=== PATIENT | female | born 2000 | race Caucasian/White ===

== ENCOUNTER 2019-12-22 16:43 | Emergency (ER) | payer OTHER ==
[2019-12-22 16:51] VITALS: RESP 18
--- NOTE | 2019-12-22 17:42 | ED ---
General Adult HPI - General Chief complaint: Extremity Injury, Lower Stated complaint: L Foot Injury Time Seen by Provider: 12/22/19 17:16 Source: patient, RN notes reviewed Mode of arrival: wheelchair Limitations: physical limitation - History of Present Illness Initial comments: 19-year-old female presents to the emergency department for a chief complaint of left foot and ankle injury. Patient states that a few days ago she was trying to climb through a handle on a door and stepped on a shoe on the floor with her left foot. Patient states she rolled her ankle. States it is painful to walk on. Patient did have negative x-rays at [facility] 2 days ago but states her foot is more swollen and feels more painful.Patient has no other complaints at this time including shortness of breath, chest pain, abdominal pain, nausea or vomiting, headache, or visual changes. - Related Data Allergies Allergy/AdvReac Type Severity Reaction Status Date / Time No Known Allergies Allergy Verified 12/22/19 16:51 Review of Systems ROS Statement: Those systems with pertinent positive or pertinent negative responses have been documented in the HPI. ROS Other: All systems not noted in ROS Statement are negative. Past Medical History Past Medical History: No Reported History History of Any Multi-Drug Resistant Organisms: None Reported Past Surgical History: Section Past Psychological History: No Psychological Hx Reported Smoking Status: Current every day smoker Past Alcohol Use History: None Reported Past Drug Use History: None Reported General Exam Limitations: physical limitation General appearance: alert, in no apparent distress Head exam: Present: atraumatic, normocephalic, normal inspection Eye exam: Present: normal appearance, PERRL, EOMI. Absent: scleral icterus, conjunctival injection, periorbital swelling ENT exam: Present: normal exam, mucous membranes moist Neck exam: Present: normal inspection, full ROM. Absent: tenderness, meningismus, lymphadenopathy Respiratory exam: Present: normal lung sounds bilaterally. Absent: respiratory distress, wheezes, rales, rhonchi, stridor Cardiovascular Exam: Present: regular rate, normal rhythm, normal heart sounds. Absent: systolic murmur, diastolic murmur, rubs, gallop, clicks GI/Abdominal exam: Present: soft, normal bowel sounds. Absent: distended, tenderness, guarding, rebound, rigid Extremities exam: Present: full ROM (full range of motion of the left foot.), tenderness (Generalized tenderness over the left foot including the navicular and fifth metatarsal. Left lateral malleolus is also tender.), normal capillary refill (DP pulses 2+. Capillary refill less than 2 seconds.), joint swelling (Patient has mild ecchymosis over the dorsum of the distal foot as well as the lateral aspect of the left foot. She has mild edema of the left foot and the left lateral malleolus. No ecchymosis on the plantar aspect of the left foot.), other (Sensation intact left lower extremity). Absent: pedal edema, calf tenderness Course Vital Signs 12/22/19 12/22/19 16:48 18:36 Temperature 98.5 F 98.9 F Pulse Rate 94 100 Respiratory 18 18 Rate Blood Pressure 129/82 138/88 O2 Sat by Pulse 100 98 Oximetry Procedures - Orthopedic Splinting/Casting Injury #1 Side: left Lower Extremity Injury Location: short leg Lower Extremity Immobilizer: posterior splint Other Orthopedic Equipment: crutches Additional Comments: NV intatct after splint applied Medical Decision Making - Medical Decision Making Neurovascular status intact in the left lower extremity. Patient does have moderate edema of the left foot. X-ray of the left foot and ankle show soft tissue swelling of the midfoot and forefoot without acute fracture or dislocation. Follow-up MRI is recommended to evaluate Lisfranc ligament for possible tear given the overlying soft tissue swelling in the mild widening of the joint space.Orthopedic surgeon Dr. Matos recommends CT of the foot, posterior splint, and nonweightbearing on crutches. CT of the left foot was obtained which showed extensive soft tissue swelling of the dorsal midfoot and forefoot. No acute fracture. However ligaments and tendons are suboptimally evaluated, to exclude Lisfranc injury MRI foot is recommended. Patient was splinted in a posterior splint and given prescription for crutches. She will remain nonweightbearing. She will follow up with orthopedics on Wednesday. She will return here for any worsening symptoms. Disposition Clinical Impression: Foot injury Narrative: Concern for Lis-franc Disposition: HOME SELF-CARE Condition: Good Instructions (If sedation given, give patient instructions): Foot Fracture in Adults (ED) Additional Instructions: Please take Tylenol or Motrin for pain. Please keep the splint dry. Remain nonweightbearing on the left foot and use crutches. Follow-up with orthopedics on Wednesday. Dr. Matos stated he would like to see you Wednesday. Return here for any worsening symptoms. Is patient prescribed a controlled substance at d/c from ED?: No Referrals: Tomasz Matos MD [STAFF PHYSICIAN] - 1-2 days Time of Disposition: 20:08
--- NOTE | 2019-12-22 18:20 | XR ---
EXAMINATION TYPE: XR ankle complete LT, XR foot complete LT DATE OF EXAM: 12/22/2019 CLINICAL HISTORY: Left foot and ankle pain after fall TECHNIQUE: Frontal, lateral and oblique images of the left ankle and foot are obtained. COMPARISON: None. FINDINGS: There is no acute fracture/dislocation evident in the left ankle. The ankle mortise appea rs within normal limits. The overlying soft tissue appears unremarkable.There is no acute fracture o r dislocation evident in the left foot. The joint spaces in the left foot are preserved. Dorsal soft tissue swelling is seen of the forefoot and midfoot. There is mild widening of the joint space betwe en the first metatarsal and second cuneiform with hallux valgus deformity. IMPRESSION: Soft tissue swelling of the dorsal midfoot and forefoot. There is no acute fracture or d islocation in the left ankle or foot. Follow-up MRI is recommended to evaluate the Lisfranc ligament for possible tear given the overlying soft tissue swelling and mild widening of the joint space.
--- NOTE | 2019-12-22 19:42 | CT ---
EXAMINATION TYPE: CT foot LT wo con DATE OF EXAM: 12/22/2019 COMPARISON: Left foot x-rays of the same date HISTORY: Pain after fall. Patient unable to flex foot. CT DLP: 156.1 mGycm Automated exposure control for dose reduction was used. TECHNIQUE: Unenhanced CT of the left foot was obtained without intravenous contrast. Three-D reformat umberto images were created on a separate workstation and submitted for review. FINDINGS: There is dorsal soft tissue swelling of the midfoot and forefoot. Probable bone island is seen within the calcaneus. No acute fracture or dislocation seen of the left foot. Hallux valgus deformity noted . Ligaments and tendons are limited on CT. Os trigonum is incidentally seen. Ankle maintains normal a lignment. Osseous mineralization is within normal limits. No radiopaque foreign body identified. IMPRESSION: 1. EXTENSIVE SOFT TISSUE SWELLING OF THE DORSAL MIDFOOT AND FOREFOOT. NO ACUTE FRACTURE OF THE LEFT F OOT SEEN. 2. LIGAMENTS AND TENDONS ARE SUBOPTIMALLY EVALUATED ON CT. TO EXCLUDE LISFRANC INJURY MRI FOOT IS REC OMMENDED.
[2019-12-22 20:28] VITALS: BP 128/78; PULSE 78; TEMP 98.3
== END 2019-12-22 20:28 | disposition home or self-care (01) ==
LOC: EC 16:43
DX: S99.922A Unspecified injury of left foot, initial encounter (principal); F17.200 Nicotine dependence, unspecified, uncomplicated; X50.1XXA Overexertion from prolonged static or awkward postures, initial encounter
CPT/HCPCS: 29515; 99284

== ENCOUNTER 2020-03-02 19:47 | Emergency (ER) | payer OTHER ==
[2020-03-02 19:58] VITALS: BP 125/77; PULSE 91; RESP 18; TEMP 98.9
--- NOTE | 2020-03-02 20:36 | XR ---
EXAMINATION TYPE: XR foot complete LT DATE OF EXAM: 03/02/2020 COMPARISON: 12/22/2019 HISTORY: Foot injury. TECHNIQUE: 3 views FINDINGS: Metatarsals appear intact. The toes appear intact. The intertarsal joint spaces are fairly normal. Ankle mortise is anatomic. IMPRESSION: No acute abnormality of the left foot. No fracture. No change compared to old exam.
--- NOTE | 2020-03-02 21:14 | ED ---
General Adult HPI - General Chief complaint: Extremity Injury, Lower Stated complaint: L Foot Injury Time Seen by Provider: 03/02/20 20:01 Source: patient, RN notes reviewed, old records reviewed Mode of arrival: ambulatory Limitations: no limitations - History of Present Illness Initial comments: 20-year-old female patient presents to ED for chief complaint of foot sprain. Patient reports that back in November she broke her foot she does not have that surgery however she has been walking boot since and supposed to be using crutches. Patient reports that she was walking down her stairs that her boot on and the backboard heel clipped the stair and her foot, snapped down. She is now having pain in the lateral foot. Denies falling. Denies a change in or any other complaints. Systemic: Pt denies fatigue, fever/chills, rash. Pt denies weakness, night sweats, weight loss. Neuro: Pt denies headache, visual disturbances, syncope or pre-syncope. HEENT: Pt denies ocular discharge or irritation, otalgia, rhinorrhea, pharyngitis or notable lymphadenopathy. Cardiopulmonary: Pt denies chest pain, SOB, heart palpitations, dyspnea on exertion. Abdominal/GI: Pt denies abdominal pain, n/v/d. : Pt denies dysuria, burning w/ urination, frequency/urgency. Denies new onset urinary or bowel incontinence. MSK: Pt denies myalgia, loss of strength or function in extremities. Neuro: Pt denies new onset weakness, paresthesias. - Related Data Allergies Allergy/AdvReac Type Severity Reaction Status Date / Time No Known Allergies Allergy Verified 03/02/20 20:02 Review of Systems ROS Statement: Those systems with pertinent positive or pertinent negative responses have been documented in the HPI. ROS Other: All systems not noted in ROS Statement are negative. Past Medical History Past Medical History: No Reported History History of Any Multi-Drug Resistant Organisms: None Reported Past Surgical History: Section Past Psychological History: No Psychological Hx Reported Past Alcohol Use History: None Reported Past Drug Use History: None Reported General Exam - General Exam Comments Initial Comments: Constitutional: NAD, AOX3, Pt has pleasant affect. HEENT: NC/AT, trachea midline, neck supple, no lymphadenopathy.External ears appear normal, without discharge. Mucous membranes moist. Eyes PERRLA, EOM intact. There is no scleral icterus. No pallor noted. Cardiopulmonary: RRR, no murmurs, rubs or gallops, no JVD noted. Lungs CTAB in anterior and posterior rock. No peripheral edema. Neuro: CN II-XII grossly intact. No nuchal rigidity. No raccon eyes, no montiel sign, no hemotympanum. No cervical spinal tenderness. MSK: Left lateral foot is mildly tender to palpation. No skin changes. Neurovascularly intact. Homans sign negative. No posterior calf tenderness bilaterally, homans sign negative bilaterally. Posterior tibialis pulse +2 bilaterally. No ankle tenderness no proximal tib-fib tenderness. Limitations: no limitations Course Vital Signs 03/02/20 19:54 Temperature 98.9 F Pulse Rate 91 Respiratory 18 Rate Blood Pressure 125/77 O2 Sat by Pulse 98 Oximetry Medical Decision Making - Medical Decision Making 20-year-old female patient presents to ED for chief complaint of foot sprain. Patient reports that back in November she broke her foot she does not have that surgery however she has been walking boot since and supposed to be using crutches. Patient reports that she was walking down her stairs that her boot on and the backboard heel clipped the stair and her foot, snapped down. She is now having pain in the lateral foot. Denies falling. Denies a change in or any other complaints. His vital signs stable, afebrile. Physical exam did display some tenderness in the left lateral foot region. Plain film is negative for acute process. Patient will be advised to continue to wear the walking boot. Use crutches Dr. weight on her left lower extremity and follow up with orthopedic consult return with any worsening symptoms. Case discussed with Dr. Mcdonald. Disposition Clinical Impression: Foot sprain Disposition: HOME SELF-CARE Condition: Stable Instructions (If sedation given, give patient instructions): Foot Sprain (ED) Additional Instructions: follow-up with primary care and orthopedic consult tomorrow. Continue to wear walking boot. Do not bear weight on left lower extremity. Return to ER if any worsening symptoms. Is patient prescribed a controlled substance at d/c from ED?: No Referrals: None,Stated [Primary Care Provider] - 1-2 days Tomasz Matos MD [STAFF PHYSICIAN] - 1-2 days
== END 2020-03-02 21:20 | disposition home or self-care (01) ==
LOC: EC 19:47
DX: S93.602A Unspecified sprain of left foot, initial encounter (principal); X58.XXXA Exposure to other specified factors, initial encounter; Y93.01 Activity, walking, marching and hiking
CPT/HCPCS: 99284

== ENCOUNTER → 2020-03-21 | Outpatient (CLI) | payer OTHER ==
--- NOTE | 2020-03-21 16:50 | CT ---
EXAMINATION TYPE: CT foot LT wo con DATE OF EXAM: 03/21/2020 COMPARISON: CT left foot December 22, 2019 HISTORY: Left lateral foot and base of 5th metatarsal pain after injury. Nondisplaced fracture anteri or process of calcaneus. CT DLP: 254.4 mGycm Automated exposure control for dose reduction was used. FINDINGS: Interval improvement in soft tissue swelling and subcutaneous edema forefoot and midfoot levels. Stab le small bone island posterior aspect calcaneus sagittal image 23. There is acute/subacute fracture through the anterior superior aspect of the calcaneus axial image 45 not clearly seen on prior CT but more defined than acute fracture suspected. Tiny 1 mm ossific densi ty near lateral aspect fracture line seen on axial image 46. Articulation with cuboid bone is preserv ed. No height loss is evident. Os trigonum redemonstrated. The talus remains intact. Ankle mortise symmetry preserved. Normal sinus tarsi fat redemonstrated. Midfoot articulations remain intact. No Lisfranc fracture identified. Flexion in the toes redemonstra umberto. Varus positioning of the metatarsals again seen. IMPRESSION: There is new acute/subacute fracture through the anterior superior aspect of the calcaneu s on current study.
== END | disposition home or self-care (01) ==
LOC: RADCTMAIN 16:16
PROVIDERS: ATTEND Orthopaedic Surgery
DX: S92.022A Displaced fracture of anterior process of left calcaneus, initial encounter for closed fracture (principal)

== ENCOUNTER 2023-02-12 23:42 | Inpatient (IN) | payer MEDICAID, OTHER ==
[2023-02-12 23:49] VITALS: RESP 18
--- NOTE | 2023-02-13 00:05 | ED ---
General Adult HPI - General Chief complaint: Psychiatric Symptoms Stated complaint: Mental Health Time Seen by Provider: 02/12/23 23:53 Source: patient, RN notes reviewed, old records reviewed Mode of arrival: ambulatory Limitations: no limitations - History of Present Illness Initial comments: 23-year-old female presenting for psychiatric evaluation. Patient states she's had depression for some time but states that her thoughts of suicide of significantly increased. She states she's had a plan to overdose on medication. No suicide attempt. No physical complaints. - Related Data Allergies Allergy/AdvReac Type Severity Reaction Status Date / Time No Known Allergies Allergy Verified 02/12/23 23:46 Review of Systems ROS Statement: Those systems with pertinent positive or pertinent negative responses have been documented in the HPI. ROS Other: All systems not noted in ROS Statement are negative. Past Medical History Past Medical History: No Reported History History of Any Multi-Drug Resistant Organisms: None Reported Past Surgical History: Section Past Psychological History: No Psychological Hx Reported Smoking Status: Vaper Past Alcohol Use History: Rare Past Drug Use History: None Reported General Exam Limitations: no limitations General appearance: alert, anxious Head exam: Present: atraumatic, normocephalic Eye exam: Present: normal appearance, PERRL Respiratory exam: Present: normal lung sounds bilaterally. Absent: respiratory distress, wheezes Cardiovascular Exam: Present: regular rate, normal rhythm GI/Abdominal exam: Present: soft. Absent: distended Extremities exam: Present: normal inspection, normal capillary refill Neurological exam: Present: alert, oriented X3, CN II-XII intact. Absent: motor sensory deficit Psychiatric exam: Present: depressed, anxious, suicidal ideation Skin exam: Present: warm, dry, intact. Absent: cyanosis, diaphoretic Course Vital Signs 02/12/23 23:46 Temperature 98.6 F Pulse Rate 73 Respiratory 18 Rate Blood Pressure 123/78 O2 Sat by Pulse 98 Oximetry - Reevaluation(s) Reevaluation #1: 02/13/23 00:05 Cleared for EPS Medical Decision Making - Medical Decision Making Was pt. sent in by a medical professional or institution (, PA, HOME HEALTH CARE COORDINATOR, urgent care, hospital, or [facility]...) When possible be specific @ -No Did you speak to anyone other than the patient for history (EMS, parent, family, police, friend...)? What history was obtained from this source @ -No Did you review nursing and triage notes (agree or disagree)? Why? @ -I reviewed and agree with nursing and triage notes Were old charts reviewed (outside hosp., previous admission, EMS record, old EKG, old radiological studies, urgent care reports/EKG's, [facility] records)? Report findings @ -No old charts were reviewed Differential Diagnosis (chest pain, altered mental status, abdominal pain women, abdominal pain men, vaginal bleeding, weakness, fever, dyspnea, syncope, headache, dizziness, GI bleed, back pain, seizure, CVA, palpatations, mental health, musculoskeletal)? @Differential Mental Health Depression, anxiety, bipolar, psychosis, schizophrenia, borderline personality, situational depression, adjustment disorder, behavioral disorder, brain tumor, malingering, substance abuse, encephalopathy, medication reaction, dementia, hypothyroidism, degenerative neurologic disorder, lupus.... This is not meant to be all-inclusive list EKG interpreted by me (3pts min.). @ -As above X-rays interpreted by me (1pt min.). @ -None done CT interpreted by me (1pt min.). @ -None done U/S interpreted by me (1pt. min.). @ -None done What testing was considered but not performed or refused? (CT, X-rays, U/S, labs)? Why? @ -None What meds were considered but not given or refused? Why? @ -None Did you discuss the management of the patient with other professionals (professionals i.e. , PA, HOME HEALTH CARE COORDINATOR, lab, RT, psych nurse, social sciences department chair, ingot stripper, teacher, environmental officer, manager of case management)? Give summary @ -[EPS nurse Was smoking cessation discussed for >3mins.? @ -No Was critical care preformed (if so, how long)? @ -No Were there social determinants of health that impacted care today? How? (Homelessness, low income, unemployed, alcoholism, drug addiction, transportation, low edu. Level, literacy, decrease access to med. care, senior living, rehab)? @ -No Was there de-escalation of care discussed even if they declined (Discuss DNR or withdrawal of care, Hospice)? DNR status @ -No What co-morbidities impacted this encounter? (DM, HTN, Smoking, COPD, CAD, Cancer, CVA, ARF, Chemo, Hep., AIDS, mental health diagnosis, sleep apnea, morbid obesity)? @ -None Was patient admitted / discharged? Hospital course, mention meds given and route, prescriptions, significant lab abnormalities, going to OR and other pertinent info. @ -Patient admitted for further evaluation and treatment of depression and suicidal ideation Undiagnosed new problem with uncertain prognosis? @ -No Drug Therapy requiring intensive monitoring for toxicity (Heparin, Nitro, Insulin, Cardizem)? @ -No Were any procedures done? @ -No Diagnosis/symptom? @ -depression, SI Acute, or Chronic, or Acute on Chronic? @ -[acute Uncomplicated (without systemic symptoms) or Complicated (systemic symptoms)? @ -default Side effects of treatment? @ -No Exacerbation, Progression, or Severe Exacerbation? @ -No Poses a threat to life or bodily function? How? (Chest pain, [place], [place], pneumonia, PE, COPD, DKA, ARF, appy, cholecystitis, CVA, Diverticulitis, Homicidal, Suicidal, threat to staff... and all critical care pts) @ -[yes, self harm - Lab Data Lab Results 02/13/23 Range/Units 00:18 Urine Opiates Screen Not Detected (NotDetected) Ur Oxycodone Screen Not Detected (NotDetected) Urine Methadone Screen Not Detected (NotDetected) Ur Propoxyphene Screen Not Detected (NotDetected) Ur Barbiturates Screen Not Detected (NotDetected) U Tricyclic Antidepress Not Detected (NotDetected) Ur Phencyclidine Scrn Not Detected (NotDetected) Ur Amphetamines Screen Not Detected (NotDetected) U Methamphetamines Scrn Not Detected (NotDetected) U Benzodiazepines Scrn Not Detected (NotDetected) Urine Cocaine Screen Not Detected (NotDetected) U Marijuana (THC) Screen Not Detected (NotDetected) Disposition Clinical Impression: Depression, Suicidal ideation Disposition: ADMITTED IP TO THIS HOSP Condition: Stable Is patient prescribed a controlled substance at d/c from ED?: No Referrals: None,Stated [Primary Care Provider] - 1-2 days Time of Disposition: 03:40
[2023-02-13 00:33] LABS: Amphetamine Screen,Urine Not Detected (NotDetected); Barbiturate Screen,Urine Not Detected (NotDetected); Benzodiazepines Screen,Urine Not Detected (NotDetected); Cocaine Screen,Urine Not Detected (NotDetected); Methadone Screen, Urine Not Detected (NotDetected); Opiate Screen,Urine Not Detected (NotDetected); Oxycodone Screen, Urine Not Detected (NotDetected); Phencyclidine Screen,Urine Not Detected (NotDetected); Tricyclic Antidepressant,Urine Not Detected (NotDetected); Urn Cannabinoid Scrn Not Detected (NotDetected)
[2023-02-13] MEDS ORDERED: LORazepam 2 MG/ML INJ IM PRN (05:03)
[2023-02-13] MEDS ORDERED: ACETAMINOPHEN TAB 325 MG TAB PO PRN (05:03)
[2023-02-13] MEDS ORDERED: haloperidoL 5 MG TAB PO PRN (05:03)
[2023-02-13] MEDS ORDERED: LORazepam 1 MG TAB PO PRN (05:03)
[2023-02-13] MEDS ORDERED: MAG HYDROX/AL HYDROX/SIMETH 30 ML CUP PO PRN (05:03)
[2023-02-13] MEDS ORDERED: MAGNESIUM HYDROXIDE 2,400 MG/30 ML CUP PO PRN (05:03)
[2023-02-13] MEDS ORDERED: HALOPERIDOL LACTATE 5 MG/ML 1 ML VIAL IM PRN (05:03)
[2023-02-13 05:15] LABS: Appearance,Urine Cloudy (Clear); Bacteria,Urine Rare /hpf; Bilirubin,Urine Negative (Negative); Blood,Urine Negative (Negative); Color,Urine Yellow; Glucose,Urine (UA) Negative (Negative); Ketones,Urine Negative (Negative); Leukocyte Esterase,Urine Negative (Negative); Mucus,Urine Rare /hpf; Nitrite,Urine Negative (Negative); PH, Urine 6.5 (5.0-8.0); Protein,Urine Negative (Negative); Specific Gravity,Urine 1.025 (1.001-1.035); Squamous Epithelial Cell,Urine 11 /hpf (0-4); Urobilinogen,Urine <2.0 mg/dL (<2.0); WBC,Urine 1 /hpf (0-5)
[2023-02-13 11:22] LABS: ALT 22 U/L (4-34); AST 20 U/L (14-36); African American GFR (CKD) >90 (>60 ml/min/1.73 sqM); Albumin 4.2 g/dL (3.5-5.0); Alkaline Phosphatase 68 U/L (38-126); Anion Gap 8 mmol/L; Bilirubin, Delta 0.2 mg/dL (0.0-0.2); Bilirubin,Unconjugated 0.3 mg/dL (0.0-1.1); Blood Urea Nitrogen 10 mg/dL (7-17); Calcium 8.9 mg/dL (8.4-10.2); Carbon Dioxide 25 mmol/L (22-30); Chloride 106 mmol/L (98-107); Glucose 97 mg/dL (74-99); Non-African American GFR(CKD) >90 (>60 ml/min/1.73 sqM); Potassium 4.2 mmol/L (3.5-5.1); Sodium 139 mmol/L (137-145); Total Bilirubin 0.5 mg/dL (0.2-1.3); Total Protein 7.4 g/dL (6.3-8.2)
[2023-02-13] MEDS: ESCITALOPRAM 10 MG TAB PO SCH (12:29)
[2023-02-13] MEDS: NICOTINE 14MG/24HR PATCH TRANSDERM SCH ×3 (12:30→18:45)
--- NOTE | 2023-02-13 13:02 | P.HP ---
Psychiatric H&P - . H&P Date: 02/13/23 History & Physical: Allergies Allergy/AdvReac Type Severity Reaction Status Date / Time No Known Allergies Allergy Verified 02/12/23 23:46 Vital Signs Temp 97.3 F L 02/13/23 05:02 Pulse 84 02/13/23 05:23 Resp 18 02/13/23 05:23 BP 113/75 02/13/23 05:23 Pulse Ox 97 02/13/23 05:23 FiO2 Intake & Output 02/12/23 02/13/23 02/13/23 18:59 06:59 18:59 Weight 110.6 kg Laboratory Last Values Sodium 139 mmol/L (137-145) 02/13/23 10:56 Potassium 4.2 mmol/L (3.5-5.1) 02/13/23 10:56 Chloride 106 mmol/L (98-107) 02/13/23 10:56 Carbon Dioxide 25 mmol/L (22-30) 02/13/23 10:56 Anion Gap 8 mmol/L 02/13/23 10:56 BUN 10 mg/dL (7-17) 02/13/23 10:56 Creatinine 0.60 mg/dL (0.52-1.04) 02/13/23 10:56 Est GFR (CKD-EPI)AfAm >90 (>60 ml/min/1.73 sqM) 02/13/23 10:56 Est GFR (CKD-EPI)NonAf >90 (>60 ml/min/1.73 sqM) 02/13/23 10:56 Glucose 97 mg/dL (74-99) 02/13/23 10:56 Calcium 8.9 mg/dL (8.4-10.2) 02/13/23 10:56 Total Bilirubin 0.5 mg/dL (0.2-1.3) 02/13/23 10:56 Conjugated Bilirubin 0.0 mg/dL (0.0-0.3) 02/13/23 10:56 Unconjugated Bilirubin 0.3 mg/dL (0.0-1.1) 02/13/23 10:56 Delta Bilirubin 0.2 mg/dL (0.0-0.2) 02/13/23 10:56 AST 20 U/L (14-36) 02/13/23 10:56 ALT 22 U/L (4-34) 02/13/23 10:56 Alkaline Phosphatase 68 U/L (38-126) 02/13/23 10:56 Total Protein 7.4 g/dL (6.3-8.2) 02/13/23 10:56 Albumin 4.2 g/dL (3.5-5.0) 02/13/23 10:56 TSH 2.010 mIU/L (0.465-4.680) 02/13/23 10:56 Urine Color Yellow 02/13/23 00:18 Urine Appearance Cloudy (Clear) H 02/13/23 00:18 Urine pH 6.5 (5.0-8.0) 02/13/23 00:18 Ur Specific [place] 1.025 (1.001-1.035) 02/13/23 00:18 Urine Protein Negative (Negative) 02/13/23 00:18 Urine Glucose (UA) Negative (Negative) 02/13/23 00:18 Urine Ketones Negative (Negative) 02/13/23 00:18 Urine Blood Negative (Negative) 02/13/23 00:18 Urine Nitrite Negative (Negative) 02/13/23 00:18 Urine Bilirubin Negative (Negative) 02/13/23 00:18 Urine Urobilinogen <2.0 mg/dL (<2.0) 02/13/23 00:18 Ur Leukocyte Esterase Negative (Negative) 02/13/23 00:18 Urine WBC 1 /hpf (0-5) 02/13/23 00:18 Ur Squamous Epith Cells 11 /hpf (0-4) H 02/13/23 00:18 Urine Bacteria Rare /hpf (None) H 02/13/23 00:18 Urine Mucus Rare /hpf (None) H 02/13/23 00:18 Urine HCG, Qual Not Detected (Not Detectd) 02/13/23 00:18 Urine Opiates Screen Not Detected (NotDetected) 02/13/23 00:18 Ur Oxycodone Screen Not Detected (NotDetected) 02/13/23 00:18 Urine Methadone Screen Not Detected (NotDetected) 02/13/23 00:18 Ur Propoxyphene Screen Not Detected (NotDetected) 02/13/23 00:18 Ur Barbiturates Screen Not Detected (NotDetected) 02/13/23 00:18 U Tricyclic Antidepress Not Detected (NotDetected) 02/13/23 00:18 Ur Phencyclidine Scrn Not Detected (NotDetected) 02/13/23 00:18 Ur Amphetamines Screen Not Detected (NotDetected) 02/13/23 00:18 U Methamphetamines Scrn Not Detected (NotDetected) 02/13/23 00:18 U Benzodiazepines Scrn Not Detected (NotDetected) 02/13/23 00:18 Urine Cocaine Screen Not Detected (NotDetected) 02/13/23 00:18 U Marijuana (THC) Screen Not Detected (NotDetected) 02/13/23 00:18 Coronavirus (PCR) Not Detected (Not Detectd) 02/13/23 03:52 02/13/23 12:58 IDENTIFYING DATA: Patient is a 23-year-old female, has 1, she is , she lives in an apartment with friends and her child. 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 Patient was negative on her urine drug screen. Patient was agreeable to strict display card writer today in the office she was well-groomed, cooperative. She states that she was having a "bad day" and states that she decided to come to the hospital for help. States that she has been having ongoing depression and also feeling "overwhelmed". States that she was having suicidal thoughts with plan to overdose yesterday however these have improved since being on in the hospital. States that she also has increased anxiety, spoke about the troubles of being a single mom, also financial stressors. She spoke also about recently being in a breakup with her fianc a few weeks ago. She claims that her sleep and appetite are fair at this time. Patient denies any suicidal or homicidal ideations intent or plan. At this time patient denies any auditory or visual hallucinations. Patient denies any flight of ideas racing thoughts and increased in goal directed behavior. Patient admits to using vape products only, no other recreational drugs. PAST PSYCHIATRIC HISTORY: Patient states that she has a history of depression and anxiety. Patient denies being on any psychiatric medications. Patient denies any previous psychiatric hospitalizations. Times that she used to see a therapist at [facility]. Patient denies any history of suicide attempts in the past. PMH:Past Medical History: No Reported History History of Any Multi-Drug Resistant Organisms: None Reported Past Surgical History: Section Past Psychological History: No Psychological Hx Reported Smoking Status: Vaper Past Alcohol Use History: Rare Past Drug Use History: None Reported ALLERGIES: as per EMR CHEMICAL DEPENDENCY HISTORY: as per HPI FAMILY PSYCHIATRIC/SUBSTANCE USE HISTORY: Claims that her cousin has bipolar disorder SOCIAL HISTORY: Patient was born and raised in [facility], claims that she completed up to 11th grade in school. 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 Claims that she went to [facility] [place] at the age of 12 for "fighting". MENTAL STATUS EXAM: General Appearance: Patient appears to be shorter in stature, mildly obese, stated age is alert, directable, and attempts to cooperate. Patient appears to have fair hygiene and grooming. Behavior: Patient is seated without any agitated behavior. Attempts cooperate Speech: Patient's speech is fluent and nonpressured. Mood/Affect: Patient reports their mood is depressed, affect is congruent and constricted. Suicidality/Homicidality: Patient denies having any homicidal ideation intent or plan. Denies any suicidal ideations intent or plan Perceptions: Patient denies any visual hallucinations and denies any auditory hallucinations Though content/process: There is no evidence of any delusional thought content and thought process is linear and goal-directed. Memory and concentration: AOX3, grossly intact for the purposes of this session. Can spell "WORLD" backwards Judgment and insight: poor STRENGTHS/WEAKNESSES: strength is that patient is resilient. Weakness is that patient has poor judgment and is impulsive INTELLECT: average IMPRESSIONS: Major depressive disorder, without psychotic features Anxiety disorder unspecified Nicotine dependence PLAN: -Patient is admitted under voluntary status to MHU for stabilization of psychiatric symptoms and safety. Patient has signed adult voluntary form and medication consent and is placed in patient's chart. -Medications : Will start patient on Lexapro 10 mg daily/twice a day, melatonin 5 mg daily at bedtime for sleep. -Ativan and Haldol PRN for agitation/aggression -Patient was informed of the risks, benefits and side effects of the medication and patient verbally consented to taking the medications. Patient signed med consent form and was placed in chart. -Internal Medicine consult to perform medical evaluation and physical. -NRT - nicotine patch -SW on board for discharge planning. Encourage patient to participate in groups to work on coping skills.
[2023-02-13 14:44] LABS: Basophils % (A) 0 %; Eosinophils # (A) 0.2 k/uL (0-0.7); Eosinophils % (A) 2 %; HGB 13.1 gm/dL (11.4-16.0); Lymphocytes # (A) 2.8 k/uL (1.0-4.8); Lymphocytes % (A) 30 %; MCH 27.9 pg (25.0-35.0); MCHC 32.7 g/dL (31.0-37.0); MCV 85.5 fL (80.0-100.0); Mean Platelet Volume 8.1; Monocytes # (A) 0.5 k/uL (0-1.0); Monocytes % (A) 5 %; Neutrophils # (A) 5.9 k/uL (1.3-7.7); Neutrophils % (A) 62 %; Platelet Count 258 k/uL (150-450); RBC 4.68 m/uL (3.80-5.40); RDW 13.2 % (11.5-15.5); WBC 9.4 k/uL (3.8-10.6)
--- NOTE | 2023-02-13 15:20 | P.HPMEDMHU ---
History of Present Illness H&P Date: 02/13/23 Patient is a 23-year-old female with obesity, nicotine dependency, and depression currently hospitalized on the mental health unit for major depressive disorder. Patient seen and examined at bedside. She is feeling fine. She denies any recent cough, cold, fever, flu, nausea, vomiting. Vital signs reviewed General: nontoxic, no distress, appears at stated age Derm: warm, dry Eyes: EOMI, no lid lag, anicteric sclera, pupils equal round reactive to light ENT: Nose and ears atraumatic, no thrush, no pharyngeal erythema Cardiovascular: S1S2 reg, no murmur, no edema, Lungs: clear to auscultation bilateral, no rhonchi, no rales, no wheeze, no accessory muscle use Ext: no gross muscle atrophy, no contractures Neuro: CN II-XII grossly intact, no focal neuro deficits Psych: Alert, oriented, appropriate affect Assessment/ Plan: Class III obesity BMI 47.6 -Outpatient structured weight loss Nicotine dependency -Nicotine replacement Data Review: Temperature 97.3, pulse 74, respirations 16, blood pressure 107/65, O2 sat 98% on room air Labs reviewed and are unremarkable. TSH 2.010. Thank you for allowing us to participate in the care of this pleasant patient. Do not hesitate to contact us with questions. Someone can be reached from the [facility] hospitalist group all hours of the day at [phone] or via [employer]. This dictation was prepared using [employer] voice recognition software. Though every attempt is made to correct errors during dictation some may still exist. Past Medical History Past Medical History: No Reported History History of Any Multi-Drug Resistant Organisms: None Reported Past Surgical History: Section Smoking Status: Vaper Medications and Allergies Allergies Allergy/AdvReac Type Severity Reaction Status Date / Time No Known Allergies Allergy Verified 02/12/23 23:46 Physical Exam Osteopathic Statement: *. No significant issues noted on an osteopathic structural exam other than those noted in the History and Physical/Consult. Vitals: Vital Signs Temp Pulse Pulse Resp BP BP Pulse Ox 02/13/23 05:23 84 18 113/75 97 02/13/23 05:02 97.3 F L 74 16 107/67 98 02/12/23 23:46 98.6 F 73 18 123/78 98 Intake and Output 02/13/23 02/13/23 02/13/23 06:59 14:59 22:59 Other: Weight 110.6 kg Cranial Nerve Examination - Cranial Nerves Cranial Nerve II- Optic: Intact Cranial Nerve III- Oculomotor: Intact Cranial Nerve IV- Trochlear: Intact Cranial Nerve V- Trigeminal: Intact Cranial Nerve - Abducens: Intact Cranial Nerve VII- Facial: Intact Cranial Nerve VIII- Auditory: Intact Cranial Nerve IX- Glossopharyngeal: Intact Cranial Nerve X- Vagus: Intact Cranial Nerve XI- Accessory: Intact Cranial Nerve XII- Hypoglossal: Intact Results CBC & Chem 7: 02/13/23 10:56 02/13/23 10:56 Labs: Abnormal Lab Results - Last 24 Hours (Table) 02/13/23 Range/Units 00:18 Urine Appearance Cloudy H (Clear) Ur Squamous Epith Cells 11 H (0-4) /hpf Urine Bacteria Rare H (None) /hpf Urine Mucus Rare H (None) /hpf Thrombosis Risk Factor Assmnt - Choose All That Apply Any of the Below Risk Factors Present?: No Other Risk Factors: No Other congenital or acquired thrombophilia - If yes, enter type in comment: No Thrombosis Risk Factor Assessment Level: Very Low Risk
[2023-02-13] MEDS ORDERED: MELATONIN 3 MG TABLET PO SCH (21:00)
[2023-02-13 23:53] LABS: Chol/HDL Ratio 4.36 Ratio; LDL Cholesterol,Calculated 107.5 mg/dL (0.0-131.0)
[2023-02-14] MEDS: NICOTINE 14MG/24HR PATCH TRANSDERM SCH (09:05)
[2023-02-14] MEDS: ESCITALOPRAM 10 MG TAB PO SCH (09:05)
[2023-02-14] MEDS ORDERED: traZODone HCL 50 MG TAB PO PRN (09:44)
--- NOTE | 2023-02-14 09:47 | P.PN ---
Progress Note - Text Progress Note Date: 02/14/23 Interval history: Patient was seen wandering the hallways and was directable and agreeable to s peak with administrative underwriter. Patient claims that she is doing a bit better today with regards to her mood and anxiety. States that she had a difficult time sleeping last night due to her roommate. States that she is okay with having her melatonin increased for tonight, we spoke about trazodone when necessary which she hasn't taken it. She claims that she is going to some groups, remains fairly calm during conversation, has been up for meals and attending some groups overweight,. At this time patient denies any suicidal or homicidal ideations intent or plan. Denies any Auditory or visual hallucinations. Patient denies any side effects from the medications and has been compliant with meds. Mental status exam: General Appearance: Patient appears to be stated age is alert, directable, and cooperative. Behavior: No agitated behavior. Patient is calm and directable Speech: Patient's speech is fluent and nonpressured. Mood/Affect: Mood is improving mildly, affect is congruent Suicidality/Homicidality: Patient denies having any suicidal or homicidal ideation intent or plan. Perceptions: Patient denies any auditory or visual hallucinations. Though content/process: There is no evidence of any delusional thought content and thought process is linear and goal-directed. Memory and concentration: AOX3, grossly intact for the purposes of this session Judgment and insight: improving mildly Assessment/Plan: Continue with current diagnosis. Patient continues to meet criteria for inpatient psychiatric admission for symptom stabilization and safety.Patient will be maintained on current psychotropic medication regimen, with the exception of increasing melatonin to 6 mg daily at bedtime and adding trazodone when necessary for insomnia. Monitor for medication compliance and for any psychotropic medication side effects. Will continue to monitor ongoing response to treatment. Encouraged participation in milieu. Will consider possible discharge tomorrow versus Wednesday back home.
[2023-02-14] MEDS: MELATONIN 3 MG TABLET PO SCH (20:46)
[2023-02-15] MEDS: ESCITALOPRAM 10 MG TAB PO SCH (08:17)
[2023-02-15] MEDS: NICOTINE 14MG/24HR PATCH TRANSDERM SCH (08:18)
--- NOTE | 2023-02-15 11:32 | P.PN ---
Progress Note - Text Progress Note Date: 02/15/23 Interval history: Patient was seen wandering the hallways and was directable and agreeable to s peak with automotive service writer. Patient has been noted to be socializing with other patients on the unit. She states that she is doing a bit better today with regards her mood and anxiety. She claims that she does miss her daughter at this time. Claims that she is attending groups and trying to participate as best as she can. States that medications have been helping and she is feeling less sedated by them. Claims that the melatonin is also helping regulate her sleep. Has been on for meals. At this time patient denies any suicidal or homicidal ideations intent or plan. Denies any Auditory or visual hallucinations. Patient denies any side effects from the medications and has been compliant with meds. Mental status exam: General Appearance: Patient appears to be mildly obese, stated age is alert, directable, and cooperative. Behavior: No agitated behavior. Patient is calm and directable Speech: Patient's speech is fluent and nonpressured. Mood/Affect: Mood is improving mildly, affect is congruent Suicidality/Homicidality: Patient denies having any suicidal or homicidal ideation intent or plan. Perceptions: Patient denies any auditory or visual hallucinations. Though content/process: There is no evidence of any delusional thought content and thought process is linear and goal-directed. concrete. Memory and concentration: AOX3, grossly intact for the purposes of this session Judgment and insight: improving mildly Assessment/Plan: Continue with current diagnosis. Patient continues to meet criteria for inpatient psychiatric admission for symptom stabilization and safety.Patient will be maintained on current psychotropic medication regimen. Monitor for medication compliance and for any psychotropic medication side effects. Will continue to monitor ongoing response to treatment. Encouraged participation in milieu. Will consider possible discharge tomorrow. SW to call family and roomate to ensure safety at home, no guns or weapons prior to d/c
[2023-02-15] MEDS: MELATONIN 3 MG TABLET PO SCH (21:16)
[2023-02-16 06:48] VITALS: BP 103/55; PULSE 77; TEMP 97.5
[2023-02-16] MEDS: ESCITALOPRAM 10 MG TAB PO SCH (08:14)
--- NOTE | 2023-02-16 10:28 | P.DS ---
Providers Date of admission: 02/13/23 04:41 Expected date of discharge: 02/16/23 Attending physician: Manuel Williamson MD Consults: 02/13/23 05:03 Consult Physician Routine Consulting Provider: Neli Lau Consult Reason/Comments: H&P and medical management Do you want consulting provider notified?: Yes Primary care physician: Stated None - Discharge Diagnosis(es) (1) Major depressive disorder without psychotic features Current Visit: Yes Status: Acute Priority: High (2) Anxiety disorder Current Visit: Yes Status: Acute Priority: Medium (3) Nicotine dependence Current Visit: Yes Status: Acute Priority: Low Hospital Course: Admission HPI: Admission note was completed by travel writer "Patient is a 23-year-old female, has 1, she is , she lives in an apartment with friends and her child. 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 Patient presented to the hospital yesterday combining of depression and suicidal thoughts and plan to overdose. Patient was negative on her urine drug screen. Patient was agreeable to strict travel writer today in the office she was well-groomed, cooperative. She states that she was having a "bad day" and states that she decided to come to the hospital for help. States that she has been having ongoing depression and also feeling "o verwhelmed". States that she was having suicidal thoughts with plan to overdose yesterday however these have improved since being on in the hospital. States that she also has increased anxiety, spoke about the troubles of being a single mom, also financial stressors. She spoke also about recently being in a breakup with her fianc a few weeks ago. She claims that her sleep and appetite are carmela r at this time. Patient denies any suicidal or homicidal ideations intent or plan. At this time patient denies any auditory or visual hallucinations. Patient denies any flight of ideas racing thoughts and increased in goal directed behavior. Patient admits to using vape products only, no other recreational drugs." Hospital course: Upon admission to the unit patient was directable and agreeable to commence treatment and signed adult voluntary form. Patient got along well with other patients on the unit and followed unit protocol. Patient was compliant with the medications and denied any side effects throughout hospital course. Patient was started on Lexapro 10 mg daily for mood/anxiety, melatonin 6 mg daily at bedtime for sleep. Patient spoke of her stressors and engaged in therapy both group and individual. Patient was also seen by medical team for history and physical exam. Throughout the course of the hospitalization patient gradually improved with regards to mood, anxiety, sleep and became more future oriented with improved insight and judgment. On the day of discharge patient denied any suicidal or homicidal ideations intent or plan denied any auditory or visual hallucinations. Patient endorsed wanting to live for her daughter and her future. The patient denied any access to guns or weapons. Patient denied any paranoia and did not endorse any delusions. Patient does not have a significant history of substance abuse and was counseled on abstaining from all substances including alcohol and marijuana. Patient was also counseled on the medications and need for regular compliance and was encouraged to follow-up with their outpatient appointment for mental health and also for primary care. Prior to discharge a family meeting will be arranged by community mental health social worker to answer any questions and ensure safety upon discharge. Mental status exam: General Appearance: Patient appears to be mildly obese, stated age is alert, pleasant, and cooperative. Patient is in no acute distress and has improved hygiene and grooming Behavior: Patient is calmly seated without any agitated behavior. Speech: Patient's speech is fluent and nonpressured. Mood/Affect: Patient reports their mood is "better", affect is congruent and euthymic. Suicidality/Homicidality: Patient denies having any suicidal or homicidal ideation intent or plan. Perceptions: Patient denies any auditory or visual hallucinations. Though content/process: There is no evidence of any delusional thought content and thought process is linear and goal-directed. more future oriented Memory and concentration: AOX3, grossly intact for the purposes of this session. Can spell "WORLD" backwards correctly. Judgment and insight: improved with guarded prognosis Impression: Major depressive disorder, without psychotic features Anxiety disorder unspecified Nicotine dependence Plan: -Continue with discharge today as patient has improved and stabilized psychiatrically and is not currently an imminent threat to herself and/or others. -Continue medications: Lexapro 10 mg daily for mood/anxiety, melatonin 6 mg daily at bedtime for sleep. -Patient was counseled on the need for medication compliance and appropriate follow-up at mental health and also primary care for medical issues. Patient verbalized understanding and agreed. -Social work to arrange for and conduct family meeting to ensure safety upon discharge and answer any questions/concerns. Social work also to arrange for patients follow up appointments for psychiatric care along with follow up with primary care provider. Social work spoke with patient's roomate/friend who claims that patient is okay to come back and environment is safe at home, no guns or weapons. -Patient counseled on abstaining from recreational drugs and marijuana and alcohol. Was informed/educated on the adverse effects on their physical and mental health. Patient verbally agreed and understood. -Patient was instructed to return to the hospital or seek immediate medical care if their psychiatric or medical symptoms do worsen or reoccur. Allergies Allergy/AdvReac Type Severity Reaction Status Date / Time No Known Allergies Allergy Verified 02/12/23 23:46 Laboratory Results WBC 9.4 k/uL (3.8-10.6) 02/13/23 10:56 RBC 4.68 m/uL (3.80-5.40) 02/13/23 10:56 Hgb 13.1 gm/dL (11.4-16.0) 02/13/23 10:56 Hct 40.0 % (34.0-46.0) 02/13/23 10:56 MCV 85.5 fL (80.0-100.0) 02/13/23 10:56 MCH 27.9 pg (25.0-35.0) 02/13/23 10:56 MCHC 32.7 g/dL (31.0-37.0) 02/13/23 10:56 RDW 13.2 % (11.5-15.5) 02/13/23 10:56 Plt Count 258 k/uL (150-450) 02/13/23 10:56 MPV 8.1 02/13/23 10:56 Neutrophils % 62 % 02/13/23 10:56 Lymphocytes % 30 % 02/13/23 10:56 Monocytes % 5 % 02/13/23 10:56 Eosinophils % 2 % 02/13/23 10:56 Basophils % 0 % 02/13/23 10:56 Neutrophils # 5.9 k/uL (1.3-7.7) 02/13/23 10:56 Lymphocytes # 2.8 k/uL (1.0-4.8) 02/13/23 10:56 Monocytes # 0.5 k/uL (0-1.0) 02/13/23 10:56 Eosinophils # 0.2 k/uL (0-0.7) 02/13/23 10:56 Basophils # 0.0 k/uL (0-0.2) 02/13/23 10:56 Sodium 139 mmol/L (137-145) 02/13/23 10:56 Potassium 4.2 mmol/L (3.5-5.1) 02/13/23 10:56 Chloride 106 mmol/L (98-107) 02/13/23 10:56 Carbon Dioxide 25 mmol/L (22-30) 02/13/23 10:56 Anion Gap 8 mmol/L 02/13/23 10:56 BUN 10 mg/dL (7-17) 02/13/23 10:56 Creatinine 0.60 mg/dL (0.52-1.04) 02/13/23 10:56 Est GFR (CKD-EPI)AfAm >90 (>60 ml/min/1.73 sqM) 02/13/23 10:56 Est GFR (CKD-EPI)NonAf >90 (>60 ml/min/1.73 sqM) 02/13/23 10:56 Glucose 97 mg/dL (74-99) 02/13/23 10:[address] Glu mg/dL 111 mg/dL 02/13/23 10:56 Hemoglobin A1c 5.5 % (<=6.0) 02/13/23 10:56 Calcium 8.9 mg/dL (8.4-10.2) 02/13/23 10:56 Total Bilirubin 0.5 mg/dL (0.2-1.3) 02/13/23 10:56 Conjugated Bilirubin 0.0 mg/dL (0.0-0.3) 02/13/23 10:56 Unconjugated Bilirubin 0.3 mg/dL (0.0-1.1) 02/13/23 10:56 Delta Bilirubin 0.2 mg/dL (0.0-0.2) 02/13/23 10:56 AST 20 U/L (14-36) 02/13/23 10:56 ALT 22 U/L (4-34) 02/13/23 10:56 Alkaline Phosphatase 68 U/L (38-126) 02/13/23 10:56 Total Protein 7.4 g/dL (6.3-8.2) 02/13/23 10:56 Albumin 4.2 g/dL (3.5-5.0) 02/13/23 10:56 Triglycerides 129.00 mg/dL (0.00-149.00) 02/13/23 10:56 Cholesterol 173.00 mg/dL (0.00-200.00) 02/13/23 10:56 LDL Cholesterol, Calc 107.5 mg/dL (0.0-131.0) 02/13/23 10:56 VLDL Cholesterol, Calc 25.80 mg/dL (5.00-40.00) 02/13/23 10:56 HDL Cholesterol 39.70 mg/dL (40.00-60.00) L 02/13/23 10:56 Cholesterol/HDL Ratio 4.36 Ratio 02/13/23 10:56 TSH 2.010 mIU/L (0.465-4.680) 02/13/23 10:56 Urine Color Yellow 02/13/23 00:18 Urine Appearance Cloudy (Clear) H 02/13/23 00:18 Urine pH 6.5 (5.0-8.0) 02/13/23 00:18 Ur Specific [place] 1.025 (1.001-1.035) 02/13/23 00:18 Urine Protein Negative (Negative) 02/13/23 00:18 Urine Glucose (UA) Negative (Negative) 02/13/23 00:18 Urine Ketones Negative (Negative) 02/13/23 00:18 Urine Blood Negative (Negative) 02/13/23 00:18 Urine Nitrite Negative (Negative) 02/13/23 00:18 Urine Bilirubin Negative (Negative) 02/13/23 00:18 Urine Urobilinogen <2.0 mg/dL (<2.0) 02/13/23 00:18 Ur Leukocyte Esterase Negative (Negative) 02/13/23 00:18 Urine WBC 1 /hpf (0-5) 02/13/23 00:18 Ur Squamous Epith Cells 11 /hpf (0-4) H 02/13/23 00:18 Urine Bacteria Rare /hpf (None) H 02/13/23 00:18 Urine Mucus Rare /hpf (None) H 02/13/23 00:18 Urine HCG, Qual Not Detected (Not Detectd) 02/13/23 00:18 Urine Opiates Screen Not Detected (NotDetected) 02/13/23 00:18 Ur Oxycodone Screen Not Detected (NotDetected) 02/13/23 00:18 Urine Methadone Screen Not Detected (NotDetected) 02/13/23 00:18 Ur Propoxyphene Screen Not Detected (NotDetected) 02/13/23 00:18 Ur Barbiturates Screen Not Detected (NotDetected) 02/13/23 00:18 U Tricyclic Antidepress Not Detected (NotDetected) 02/13/23 00:18 Ur Phencyclidine Scrn Not Detected (NotDetected) 02/13/23 00:18 Ur Amphetamines Screen Not Detected (NotDetected) 02/13/23 00:18 U Methamphetamines Scrn Not Detected (NotDetected) 02/13/23 00:18 U Benzodiazepines Scrn Not Detected (NotDetected) 02/13/23 00:18 Urine Cocaine Screen Not Detected (NotDetected) 02/13/23 00:18 U Marijuana (THC) Screen Not Detected (NotDetected) 02/13/23 00:18 Coronavirus (PCR) Not Detected (Not Detectd) 02/13/23 03:52 Vital Signs Temp 97.5 F L 02/16/23 06:47 Pulse 77 02/16/23 06:47 Resp 18 02/16/23 06:47 BP 103/55 02/16/23 06:47 Pulse Ox 99 02/14/23 06:44 FiO2 Patient Condition at Discharge: Stable Plan - Discharge Summary Discharge Rx Participant: Yes New Discharge Prescriptions: New Melatonin 6 mg PO HS 30 Days #60 tab Escitalopram [Lexapro] 10 mg PO DAILY 30 Days #30 tab Discharge Medication List Escitalopram [Lexapro] 10 mg PO DAILY 30 Days #30 tab 02/16/23 [Rx] Melatonin 6 mg PO HS 30 Days #60 tab 02/16/23 [Rx] Follow up Appointment(s)/Referral(s): Stefan Venegas [Outside] - 02/19/23 2:00 pm (Deborah Hernandez [facility] will text invite to phone number for the [facility] meeting please accept invite ) [facility] [NON-STAFF] - 1 Week Patient Instructions/Handouts: Depression (DC) Activity/Diet/Wound Care/Special Instructions: Avoid the use of street drugs and alcohol. Take all medications as prescribed. When you are in need of refills on your medications, please contact your medical provider and/or outpatient psychiatrist to have this done. Please go to scheduled outpatient appointments for aftercare treatment. If symptoms return or become worse, call the crisis line at and/or go to the nearest emergency room for evaluation. Discharge Disposition: HOME SELF-CARE
== END 2023-02-16 11:46 | disposition home or self-care (01) | DRG 751 ==
LOC: EC 23:42 → 3MHU 02-13 04:41
PROVIDERS: ADMIT Psychiatry & Neurology Psychiatry; ATTEND Psychiatry & Neurology Psychiatry
DX: F32.2 Major depressive disorder, single episode, severe without psychotic features (principal); R45.851 Suicidal ideations; E66.9 Obesity, unspecified; F17.290 Nicotine dependence, other tobacco product, uncomplicated; Z20.822 Contact with and (suspected) exposure to COVID-19; Z63.5 Disruption of family by separation and divorce; Z68.42 Body mass index [BMI] 45.0-49.9, adult; Z28.310 Unvaccinated for COVID-19; Z81.8 Family history of other mental and behavioral disorders
CPT/HCPCS: 80053; 80061; 80306; 81001; 81025; 82075; 82248; 83036; 84443; 85025; 87635; 99285